=== PATIENT | male | born 1985 | race Caucasian/White ===

== ENCOUNTER 2019-01-16 23:24 | Inpatient (IN) | payer MEDICAID, OTHER ==
[2019-01-17 05:07] LABS: ADD MAN DIFF? NO
[2019-01-17 05:09] LABS: BASOPHILS % 0.3 % (0.0-2.0); HEMATOCRIT 51.3 % (42.0-52.0); HEMOGLOBIN 17.2 g/dl (14.0-18.0); LYMPHOCYTES # 0.8 10^3/ul (0.8-2.9); LYMPHOCYTES % 4.9 % (15.0-51.0); MEAN CORPUSCULAR HEMOGLOBIN 30.1 pg (29.0-33.0); MEAN CORPUSCULAR HGB CONC 33.5 g/dl (32.0-37.0); MEAN CORPUSCULAR VOLUME 89.8 fl (82.0-101.0); MEAN PLATELET VOLUME 10.2 fl (7.4-10.4); MONOCYTE # 0.3 10^3/ul (0.3-0.9); MONOCYTES % 1.9 % (0.0-11.0); NEUTROPHIL # 14.3 10^3/ul (1.6-7.5); NEUTROPHILS % 92.3 % (39.0-77.0); PLATELET COUNT 230 10^3/UL (140-415); RED BLOOD COUNT 5.71 10^6/ul (4.70-6.10); RED CELL DISTRIBUTION WIDTH 12.8 % (11.5-14.5)
[2019-01-17 05:09] LABS: WHITE BLOOD COUNT 15.5 10^3/ul (4.8-10.8)
[2019-01-17 05:11] LABS: ADD UMIC NO; UR ASCORBIC ACID NEGATIVE (NEGATIVE); UR BILIRUBIN (Dip) NEGATIVE (NEGATIVE); UR BLOOD (Dip) NEGATIVE (NEGATIVE); UR CLARITY CLEAR (CLEAR); UR COLOR YELLOW (YELLOW); UR GLUCOSE (Dip) 1+ mg/dL (NEGATIVE); UR KETONES (Dip) NEGATIVE (NEGATIVE); UR LEUKOCYTE ESTERASE (Dip) NEGATIVE Leu/ul (NEGATIVE); UR NITRITE (Dip) NEGATIVE (NEGATIVE); UR TOTAL PROTEIN (Dip) NEGATIVE (NEGATIVE); UR UROBILINOGEN (Dip) NEGATIVE (NEGATIVE)
[2019-01-17] MEDS: morphine 4 MG/ML VIAL IV (05:12)
[2019-01-17] MEDS: ONDANSETRON 4 MG INJ IV (05:12)
[2019-01-17] MEDS: SOD CHLORIDE 0.9% 1,000 ML IV ×4 (05:15→22:14)
[2019-01-17 05:29] LABS: ALANINE AMINOTRANSFERASE 32 IU/L (13-69); ALBUMIN/GLOBULIN RATIO 1.35; ALKALINE PHOSPHATASE 76 IU/L (42-121); AMYLASE 78 U/L (11-123); ANION GAP 20 (5-13); ASPARTATE AMINO TRANSFERASE 32 IU/L (15-46); BILIRUBIN,INDIRECT 0.8 mg/dl (0-1.1); BILIRUBIN,TOTAL 0.8 mg/dl (0.2-1.3); BLOOD UREA NITROGEN 13 mg/dl (7-20); CALCIUM 9.6 mg/dl (8.4-10.2); CARBON DIOXIDE 25 mmol/L (21-31); CHLORIDE 99 mmol/L (97-110); CREATININE 0.85 mg/dl (0.61-1.24); Estimated GFR > 60 mL/min (>60); GLUCOSE 153 mg/dl (70-220); LIPASE 83 U/L (23-300); POTASSIUM 3.8 mmol/L (3.5-5.1); SODIUM 144 mmol/L (135-144); TOTAL PROTEIN 8.7 g/dl (6.1-8.1)
[2019-01-17] MEDS: IOHEXOL 300MG/ML 150 ML BTL (06:02)
[2019-01-17] MEDS: SOD CHLORIDE 0.9% 100 ML (06:02)
[2019-01-17 06:51] LABS: PROTIME 13.3 Sec (11.9-14.9)
[2019-01-17 06:52] LABS: PARTIAL THROMBOPLASTIN TIME 28.1 Sec (23.0-35.0)
[2019-01-17] MEDS: PIPER-TAZO 3.375 GM IV (PMX) 100 ML IVPB ×4 (07:02→23:09)
[2019-01-17] MEDS ORDERED: ONDANSETRON 4 MG INJ IV ×3 (07:30→20:30)
[2019-01-17] MEDS: ACETAMINOPHEN 325 MG TAB PO (09:31)
[2019-01-17] MEDS ORDERED: NACL 0.9% 3 ML SYG IV (10:30)
[2019-01-17] MEDS: morphine 2 MG INJ IV ×2 (11:01→15:47)
[2019-01-17 12:09] LABS: LACTIC ACID 2.6 mmol/L (0.5-2.0)
[2019-01-17] MEDS ORDERED: LIDOCAINE 1% (MPF) 30 ML INJ (17:00)
[2019-01-17] MEDS ORDERED: BUPIVACAINE 0.5%/EPI (SDV) 30 ML INJ (17:00)
[2019-01-17] MEDS ORDERED: ROCURONIUM 50 MG INJ (18:31)
[2019-01-17] MEDS ORDERED: PROPOFOL 20 ML (18:31)
[2019-01-17] MEDS ORDERED: MIDAZOLAM 1 MG/ML 2 ML INJ (18:32)
[2019-01-17] MEDS ORDERED: FENTAnyl 50 MCG/ML VIAL (18:32)
[2019-01-17] MEDS ORDERED: ROPIVACAINE 0.5 % 30 ML VIAL (18:32)
[2019-01-17] MEDS ORDERED: EPHEDrine 50 MG INJ (19:30)
[2019-01-17] MEDS ORDERED: METOCLOPRAMIDE 10 MG INJ (19:53)
[2019-01-17] MEDS ORDERED: KETOROLAC 30 MG INJ (19:53)
[2019-01-17] MEDS ORDERED: DEXAMETHASONE 4 MG/ML 5 ML INJ (19:53)
[2019-01-17] MEDS ORDERED: ONDANSETRON 4 MG INJ (19:53)
[2019-01-17] MEDS ORDERED: SUGAMMADEX SODIUM 200 MG/2 ML VIAL IV (20:03)
[2019-01-17] MEDS ORDERED: EPHEDrine SULFATE 50 MG/5 ML SYG IV (20:30)
[2019-01-17] MEDS ORDERED: MEPERIDINE 25 MG INJ IV (20:30)
[2019-01-17] MEDS ORDERED: ALBUMIN HUMAN 5% 250 ML IV (20:30)
[2019-01-17] MEDS ORDERED: DIPHENHYDRAMINE 50 MG INJ IV (20:30)
[2019-01-17] MEDS ORDERED: OXYCODONE/ACETAMINOPHEN (5/325) TAB PO ×2 (20:30)
[2019-01-17] MEDS ORDERED: METOCLOPRAMIDE 10 MG INJ IV (20:30)
[2019-01-17] MEDS ORDERED: HYDROmorphONE 1 MG/5 ML IV SYRINGE IV ×3 (20:30)
[2019-01-17] MEDS ORDERED: FENTAnyl 50 MCG/ML VIAL IV ×3 (20:30)
[2019-01-17] MEDS: ACETAMINOPHEN 1000MG/100ML IV 100 ML IVPB (20:32)
[2019-01-18 00:03] LABS: LACTIC ACID 2.1 mmol/L (0.5-2.0)
[2019-01-18] MEDS: PIPER-TAZO 3.375 GM IV (PMX) 100 ML IVPB ×4 (05:31→23:36)
[2019-01-18 08:00] LABS: HEMATOCRIT 43.3 % (42.0-52.0); HEMOGLOBIN 14.5 g/dl (14.0-18.0); MEAN CORPUSCULAR HGB CONC 33.5 g/dl (32.0-37.0); MEAN CORPUSCULAR VOLUME 92.7 fl (82.0-101.0); MEAN PLATELET VOLUME 10.9 fl (7.4-10.4); PLATELET COUNT 178 10^3/UL (140-415); POSITIVE DIFF @See below; RED BLOOD COUNT 4.67 10^6/ul (4.70-6.10); RED CELL DISTRIBUTION WIDTH 13.4 % (11.5-14.5)
[2019-01-18 08:00] LABS: WHITE BLOOD COUNT 19.4 10^3/ul (4.8-10.8)
[2019-01-18 08:03] LABS: ADD MAN DIFF? YES
[2019-01-18 08:11] LABS: HEMOGLOBIN A1C 5.1 % (0-5.9)
[2019-01-18 08:17] LABS: ALANINE AMINOTRANSFERASE 41 IU/L (13-69); ALBUMIN 3.6 g/dl (3.3-4.9); ALBUMIN/GLOBULIN RATIO 1.16; ALKALINE PHOSPHATASE 47 IU/L (42-121); ANION GAP 14 (5-13); ASPARTATE AMINO TRANSFERASE 31 IU/L (15-46); BILIRUBIN,INDIRECT 1.6 mg/dl (0-1.1); BILIRUBIN,TOTAL 1.6 mg/dl (0.2-1.3); BLOOD UREA NITROGEN 14 mg/dl (7-20); CALCIUM 8.6 mg/dl (8.4-10.2); CARBON DIOXIDE 25 mmol/L (21-31); CHLORIDE 103 mmol/L (97-110); CHOL/HDL RATIO 4.1 RATIO; CHOLESTEROL 125 mg/dl (100-200); CREATININE 0.87 mg/dl (0.61-1.24); Estimated GFR > 60 mL/min (>60); GLUCOSE 170 mg/dl (70-220); HDL CHOLESTEROL 30 mg/dl (28-63); LDL CHOLESTEROL,CALCULATED 80 mg/dl; MAGNESIUM 1.8 mg/dl (1.7-2.5); PHOSPHORUS 2.7 mg/dl (2.5-4.9); POTASSIUM 3.5 mmol/L (3.5-5.1); SODIUM 142 mmol/L (135-144); TOTAL PROTEIN 6.7 g/dl (6.1-8.1); TRIGLYCERIDES 73 mg/dl (0-149)
[2019-01-18 08:38] LABS: ANISOCYTOSIS 2+ (0-0); BAND NEUTROPHILS #M 4.8 10^3/ul (0.0-0.6); BAND NEUTROPHILS % (M) 25 % (0-4); GIANT THROMBO% (M) 2 % (0-0); LYMPHOCYTES #M 1.3 10^3/ul (0.8-2.9); LYMPHOCYTES % (M) 7 % (15-51); MICROCYTOSIS 2+ (0-0); MONOCYTE #M 0.7 10^3/ul (0.3-0.9); MONOCYTES % (M) 4 % (0-11); PLATELET ESTIMATE NORMAL; POLYCHROMASIA 1+ (0-0); REACTIVE LYMPHOCYTES #M 0.1 10^3/ul (0.0-0.0); REACTIVE LYMPHOCYTES% (M) 1 % (0-0); SEG NEUT #M 13.2 10^3/ul (1.6-7.5); SEGMENTED NEUTROPHILS (M) % 63 % (39-77); SMUDGE%M 2 % (0-0)
[2019-01-18 08:44] LABS: ADD MAN DIFF? NO
[2019-01-18 08:47] LABS: BASOPHIL # 0.1 10^3/ul (0.0-0.1); BASOPHILS % 0.3 % (0.0-2.0); HEMOGLOBIN 13.9 g/dl (14.0-18.0); LYMPHOCYTES # 0.8 10^3/ul (0.8-2.9); MEAN CORPUSCULAR HEMOGLOBIN 31.3 pg (29.0-33.0); MEAN CORPUSCULAR HGB CONC 33.9 g/dl (32.0-37.0); MEAN CORPUSCULAR VOLUME 92.3 fl (82.0-101.0); MEAN PLATELET VOLUME 10.5 fl (7.4-10.4); MONOCYTE # 0.8 10^3/ul (0.3-0.9); NEUTROPHIL # 17.4 10^3/ul (1.6-7.5); NEUTROPHILS % 90.4 % (39.0-77.0); PLATELET COUNT 172 10^3/UL (140-415); RED BLOOD COUNT 4.44 10^6/ul (4.70-6.10); RED CELL DISTRIBUTION WIDTH 13.2 % (11.5-14.5)
[2019-01-18 08:47] LABS: WHITE BLOOD COUNT 19.2 10^3/ul (4.8-10.8)
[2019-01-18 09:09] LABS: ANION GAP 14 (5-13); BLOOD UREA NITROGEN 14 mg/dl (7-20); CALCIUM 8.5 mg/dl (8.4-10.2); CARBON DIOXIDE 23 mmol/L (21-31); CHLORIDE 104 mmol/L (97-110); CREATININE 0.86 mg/dl (0.61-1.24); Estimated GFR > 60 mL/min (>60); GLUCOSE 207 mg/dl (70-220); POTASSIUM 3.5 mmol/L (3.5-5.1); SODIUM 141 mmol/L (135-144)
[2019-01-18] MEDS: morphine 2 MG INJ IV (10:46)
[2019-01-18 11:16] LABS: LACTIC ACID 2.5 mmol/L (0.5-2.0)
[2019-01-18] MEDS: SOD CHLORIDE 0.9% 1,000 ML IV (11:39)
[2019-01-18] MEDS: SOD CHLORIDE 0.9% 500 ML IV (11:40)
[2019-01-18] MEDS: metroNIDAZOLE 500 MG TAB PO ×2 (14:51→21:54)
[2019-01-19] MEDS: PIPER-TAZO 3.375 GM IV (PMX) 100 ML IVPB ×4 (05:56→23:53)
[2019-01-19 06:11] LABS: ADD MAN DIFF? NO
[2019-01-19] MEDS: metroNIDAZOLE 500 MG TAB PO ×3 (06:11→22:44)
[2019-01-19 06:17] LABS: BASOPHILS % 0.2 % (0.0-2.0); EOSINOPHILS % 0.1 % (0.0-7.0); HEMATOCRIT 39.7 % (42.0-52.0); HEMOGLOBIN 13.4 g/dl (14.0-18.0); LYMPHOCYTES # 1.2 10^3/ul (0.8-2.9); MEAN CORPUSCULAR HEMOGLOBIN 30.7 pg (29.0-33.0); MEAN CORPUSCULAR HGB CONC 33.8 g/dl (32.0-37.0); MEAN CORPUSCULAR VOLUME 91.1 fl (82.0-101.0); MEAN PLATELET VOLUME 10.8 fl (7.4-10.4); MONOCYTE # 0.6 10^3/ul (0.3-0.9); MONOCYTES % 4.3 % (0.0-11.0); NEUTROPHIL # 12.4 10^3/ul (1.6-7.5); NEUTROPHILS % 86.7 % (39.0-77.0); PLATELET COUNT 168 10^3/UL (140-415); RED BLOOD COUNT 4.36 10^6/ul (4.70-6.10); RED CELL DISTRIBUTION WIDTH 13.1 % (11.5-14.5)
[2019-01-19 06:17] LABS: WHITE BLOOD COUNT 14.3 10^3/ul (4.8-10.8)
[2019-01-19 07:01] LABS: ANION GAP 7 (5-13); BLOOD UREA NITROGEN 15 mg/dl (7-20); CALCIUM 8.7 mg/dl (8.4-10.2); CARBON DIOXIDE 25 mmol/L (21-31); CHLORIDE 106 mmol/L (97-110); CREATININE 0.85 mg/dl (0.61-1.24); Estimated GFR > 60 mL/min (>60); GLUCOSE 110 mg/dl (70-220); POTASSIUM 3.8 mmol/L (3.5-5.1); SODIUM 138 mmol/L (135-144)
[2019-01-19] MEDS: SOD CHLORIDE 0.9% 1,000 ML IV ×3 (10:02→23:54)
[2019-01-19] MEDS: morphine 2 MG INJ IV (22:48)
[2019-01-20 05:37] LABS: ADD MAN DIFF? NO
[2019-01-20 05:45] LABS: WHITE BLOOD COUNT 9.2 10^3/ul (4.8-10.8)
[2019-01-20 05:45] LABS: BASOPHILS % 0.4 % (0.0-2.0); EOSINOPHILS % 0.4 % (0.0-7.0); HEMATOCRIT 43.3 % (42.0-52.0); HEMOGLOBIN 14.7 g/dl (14.0-18.0); LYMPHOCYTES # 1.5 10^3/ul (0.8-2.9); LYMPHOCYTES % 16.2 % (15.0-51.0); MEAN CORPUSCULAR HEMOGLOBIN 30.7 pg (29.0-33.0); MEAN CORPUSCULAR HGB CONC 33.9 g/dl (32.0-37.0); MEAN CORPUSCULAR VOLUME 90.4 fl (82.0-101.0); MEAN PLATELET VOLUME 10.6 fl (7.4-10.4); MONOCYTE # 0.6 10^3/ul (0.3-0.9); MONOCYTES % 6.5 % (0.0-11.0); NEUTROPHILS % 76.2 % (39.0-77.0); PLATELET COUNT 221 10^3/UL (140-415); RED BLOOD COUNT 4.79 10^6/ul (4.70-6.10); RED CELL DISTRIBUTION WIDTH 13.1 % (11.5-14.5)
[2019-01-20] MEDS: metroNIDAZOLE 500 MG TAB PO ×3 (05:56→21:46)
[2019-01-20] MEDS: PIPER-TAZO 3.375 GM IV (PMX) 100 ML IVPB ×3 (05:56→21:39)
[2019-01-20] MEDS: SOD CHLORIDE 0.9% 1,000 ML IV (14:43)
[2019-01-21] MEDS: SOD CHLORIDE 0.9% 1,000 ML IV ×3 (01:43→22:09)
[2019-01-21] MEDS: PIPER-TAZO 3.375 GM IV (PMX) 100 ML IVPB ×4 (02:20→18:17)
[2019-01-21 06:08] LABS: ADD MAN DIFF? NO
[2019-01-21 06:19] LABS: BASOPHIL # 0.1 10^3/ul (0.0-0.1); BASOPHILS % 0.7 % (0.0-2.0); EOSINOPHILS # 0.2 10^3/ul (0.0-0.5); EOSINOPHILS % 2.4 % (0.0-7.0); HEMATOCRIT 46.1 % (42.0-52.0); HEMOGLOBIN 15.9 g/dl (14.0-18.0); LYMPHOCYTES # 1.7 10^3/ul (0.8-2.9); LYMPHOCYTES % 25.1 % (15.0-51.0); MEAN CORPUSCULAR HEMOGLOBIN 30.8 pg (29.0-33.0); MEAN CORPUSCULAR HGB CONC 34.5 g/dl (32.0-37.0); MEAN CORPUSCULAR VOLUME 89.2 fl (82.0-101.0); MONOCYTE # 0.5 10^3/ul (0.3-0.9); MONOCYTES % 7.6 % (0.0-11.0); NEUTROPHIL # 4.3 10^3/ul (1.6-7.5); PLATELET COUNT 247 10^3/UL (140-415); RED BLOOD COUNT 5.17 10^6/ul (4.70-6.10); RED CELL DISTRIBUTION WIDTH 12.9 % (11.5-14.5)
[2019-01-21 06:19] LABS: WHITE BLOOD COUNT 6.7 10^3/ul (4.8-10.8)
[2019-01-21] MEDS: metroNIDAZOLE 500 MG TAB PO ×3 (06:47→22:09)
[2019-01-22] MEDS: PIPER-TAZO 3.375 GM IV (PMX) 100 ML IVPB ×4 (00:26→18:00)
[2019-01-22] MEDS: metroNIDAZOLE 500 MG TAB PO ×3 (05:47→21:19)
[2019-01-22 06:29] LABS: ADD MAN DIFF? NO
[2019-01-22 06:35] LABS: BASOPHIL # 0.1 10^3/ul (0.0-0.1); BASOPHILS % 0.7 % (0.0-2.0); EOSINOPHILS # 0.2 10^3/ul (0.0-0.5); EOSINOPHILS % 2.3 % (0.0-7.0); HEMATOCRIT 48.2 % (42.0-52.0); HEMOGLOBIN 16.2 g/dl (14.0-18.0); LYMPHOCYTES # 1.8 10^3/ul (0.8-2.9); LYMPHOCYTES % 20.5 % (15.0-51.0); MEAN CORPUSCULAR HEMOGLOBIN 30.2 pg (29.0-33.0); MEAN CORPUSCULAR HGB CONC 33.6 g/dl (32.0-37.0); MEAN CORPUSCULAR VOLUME 89.9 fl (82.0-101.0); MEAN PLATELET VOLUME 10.1 fl (7.4-10.4); MONOCYTE # 0.7 10^3/ul (0.3-0.9); MONOCYTES % 8.2 % (0.0-11.0); NEUTROPHIL # 5.7 10^3/ul (1.6-7.5); NEUTROPHILS % 66.3 % (39.0-77.0); PLATELET COUNT 267 10^3/UL (140-415); RED BLOOD COUNT 5.36 10^6/ul (4.70-6.10)
[2019-01-22 06:35] LABS: WHITE BLOOD COUNT 8.6 10^3/ul (4.8-10.8)
[2019-01-22 07:14] LABS: ANION GAP 8 (5-13); BLOOD UREA NITROGEN 12 mg/dl (7-20); CALCIUM 8.9 mg/dl (8.4-10.2); CARBON DIOXIDE 25 mmol/L (21-31); CHLORIDE 106 mmol/L (97-110); CREATININE 0.84 mg/dl (0.61-1.24); Estimated GFR > 60 mL/min (>60); GLUCOSE 101 mg/dl (70-220); POTASSIUM 3.9 mmol/L (3.5-5.1); SODIUM 139 mmol/L (135-144)
[2019-01-22] MEDS: ENOXAPARIN 40 MG/0.4 ML SYG SC (09:15)
[2019-01-22] MEDS: SOD CHLORIDE 0.9% 1,000 ML IV (11:41)
[2019-01-22] MEDS: ACETAMINOPHEN 325 MG TAB PO (21:19)
== END 2019-01-22 22:56 | disposition home or self-care (01) | DRG 853 ==
LOC: PP2 01-19 03:50 → FTE 23:24 → MS3 01-17 07:09 → PP2 01-17 21:53
PROC: 0DTJ4ZZ Resection of Appendix, Percutaneous Endoscopic Approach (ICD-10-PCS; principal; 2019-01-17 18:00)
DX: A41.9 Sepsis, unspecified organism (principal); K35.32 Acute appendicitis with perforation, localized peritonitis, and gangrene, without abscess; K43.9 Ventral hernia without obstruction or gangrene; K40.90 Unilateral inguinal hernia, without obstruction or gangrene, not specified as recurrent; R16.0 Hepatomegaly, not elsewhere classified
CPT/HCPCS: 74177; 80048; 80053; 80061; 81003; 82150; 83036; 83605; 83690; 83735; 84100; 85025; 85610; 85730; 87040; 88304; 96374; 96375; 99284-25